=== PATIENT | female | born 1945 | race Caucasian/White ===

== ENCOUNTER 2016-05-27 01:44 | Inpatient (IN) ==
[2016-05-27] MEDS ORDERED: Ipratropium/Albuterol Neb 3 ML IH ONE (01:54)
[2016-05-27] MEDS ORDERED: Levofloxacin 750 MG/150 ML 750 MG/150 ML BAG IVPB ONE (01:54)
--- NOTE | 2016-05-27 01:56 | Emergency Department Note ---
Disposition Clinical Impression: Acute exacerbation of chronic obstructive airways disease, Community acquired pneumonia, Hypoxia, Failure of outpatient treatment Disposition: Admitted As Inpatient Condition: Good Referrals: Brennan Vance MD [Primary Care Provider] - Forms: ED Satisfaction Letter SOB HPI - General Chief Complaint: ED Shortness of Breath/Dyspnea Stated Complaint: GLENDA Time Seen by Provider: 05/27/16 01:49 Source: patient, EMS Mode of arrival: EMS Limitations: no limitations Nursing Notes Reviewed: Yes Vital Signs Reviewed: Yes - History of Present Illness Patient states that she thought she is having a typical exacerbation of her COPD. She saw Dr. Nazario Scott 2 days ago was started on azithromycin and prednisone. She is continued to have increased shortness of breath to where she felt too weak to get up and get around this early a.m. prompting a squad to be called. She states her oxygen has been increased from 2 L to 3 L. She has been saturating in the mid 80s and this came up to the 90s with an aerosol from EMS. She continues with a harsh cough, dyspnea and tachycardia. She has been bringing up some green phlegm. She states she has been around others who have had upper respiratory infection. She denies chest pain or palpitations. She has not been any diaphoresis, nausea, abdominal pain or diarrhea. She denies any lower extremity swelling or complaints. She has any other change in her medicines. She states she does have aerosols available to her at home and she has been taking about 1 a day. Pt Subjective Complaint: shortness of breath, cough Onset (ago): day(s) Context: recent illness Severity: moderate, severe Consistency/Duration: gradually worsening Improves with: oxygen, bronchodilators Worsens with: exertion, movement, coughing Known history of: COPD Associated symptoms: Reports: cough, wheezing, sputum production. Denies: chest pain, pain with inspiration, fever, orthopnea, lower extremity pain, polyuria, polydipsia, parasthesias, palpitations, hemoptysis, diaphoresis, nausea/vomiting, syncope, abdominal pain, rash Treatment prior to arrival: oxygen, bronchodilator Cough present: Yes Cough Description: Voluntary, Productive, Hacking, Wheezy Cough Frequency: Intermittent Sputum production: Yes Sputum Amount: Moderate Sputum Color: Green - Related Data Home oxygen amount: 3 liters Home Medications Medication Instructions Recorded Confirmed Albuterol Sulfate [Proair Hfa] 2 puff IH Q6-8H PRN 05/27/16 05/27/16 Fluticasone/Salmeterol [Advair 1 each IH BID 05/27/16 05/27/16 250-50 Diskus] Folic Acid 0.4 mg PO QDPC 05/27/16 05/27/16 Furosemide [Lasix] 40 mg PO DAILY 05/27/16 05/27/16 Losartan [Cozaar] 50 mg PO QDPC 05/27/16 05/27/16 Metoprolol [Lopressor] 25 mg PO QDPC 05/27/16 05/27/16 Montelukast [Singulair] 10 mg PO DAILY 05/27/16 05/27/16 Potassium Chloride [Klor-Con 10] 20 meq PO QDPC 05/27/16 05/27/16 Allergies Allergy/AdvReac Type Severity Reaction Status Date / Time No Known Allergies Allergy Verified 05/27/16 01:56 All systems ED: reviewed and negative except as stated. Past Medical History - Past Medical History Attestation: Yes The following information was validated with the patient. Source: patient, old records reviewed, nursing notes reviewed Medical history: Reports: COPD, GERD, hypertension Surgical history: Reports: cholecystectomy, other (Bladder surgery) Psychiatric history: Reports: no psych history - Social History Smoking Status: Never smoker Alcohol use: Reports: none Drug use: Reports: none Physical Exam - General Limitations: no limitations General appearance: alert, in no apparent distress - Head Head exam: atraumatic, normocephalic, normal inspection - Eye Eye exam: Present: normal appearance, PERRL, EOMI - ENT ENT exam: normal exam, normal oropharynx, mucous membranes moist - Neck Neck exam: Present: normal inspection, full ROM, trachea midline - Chest Chest inspection: Present: normal inspection, symmetric chest wall rise - Respiratory Respiratory exam: Present: respiratory distress, wheezes, accessory muscle use, prolonged expiratory phase. Absent: stridor - Cardiovascular Cardiovascular exam: Present: regular rate, normal rhythm, tachycardia, normal heart sounds - Abdominal Exam Abdominal exam: Present: soft, Non-Tender, normal bowel sounds. Absent: tenderness, distention, guarding, rebound, rigidity - Extremities Exam Extremities exam: Present: normal inspection, full ROM, normal capillary refill. Absent: tenderness, pedal edema, calf tenderness - Expanded Lower Extremity Exam Neurovascular/Tendon exam: Present: normal capillary refill. Absent: motor deficit, sensory deficit, tendon deficit Gait: not tested/not observed - Back Exam Back exam: Present: normal inspection, full ROM. Absent: tenderness - Neurological Exam Neurological exam: Present: alert, oriented X3 - Psychiatric Psychiatric exam: Present: normal affect, normal mood. Absent: anxious - Skin Skin exam: Present: warm, dry, intact, normal color. Absent: cyanosis, diaphoresis, pallor Course Course Narrative: With return of all EKG, lab and x-ray, care has been discussed with the patient and family. Her pneumonia with hypoxia and with failure of outpatient treatment warrants inpatient observation. For this purpose I discussed care with Dr. Ley and verbal orders are obtained for her observation. Vital Signs Temperature 97.8 F 05/27/16 01:45 Pulse Rate 122 05/27/16 01:45 Respiratory Rate 24 05/27/16 01:45 Blood Pressure 116/57 05/27/16 01:45 O2 Sat by Pulse Oximetry 85 05/27/16 01:45 Temperature 97.8 F 05/27/16 01:45 Pulse Rate 114 05/27/16 02:49 Respiratory Rate 26 05/27/16 02:49 Blood Pressure 111/98 05/27/16 02:49 O2 Sat by Pulse Oximetry 91 05/27/16 02:49 Oxygen Delivery Oxygen Delivery Nasal Cannula Shortness of Breath/Dyspnea - Differential Diagnosis Likely: acute exacerbation of chronic obstructive airways disease, congestive heart failure, pneumonia, asthma with exacerbation - Medical Records Medical records reviewed: Yes I reviewed the patient's medical records. - Lab Data Lab results reviewed: Yes I reviewed the patient's lab results. Result diagrams: 05/27/16 02:14 05/27/16 02:14 Lab Results 05/27/16 05/27/16 05/27/16 Range/Units 02:14 02:14 02:14 WBC 13.4 H (4.3-11.1) K/mcL RBC 5.73 H (3.82-4.97) M/mcL Hgb 14.7 (11.5-15.4) g/dL Hct 51.0 H (35.3-44.9) % MCV 89.0 (83.0-100.0) fL MCH 25.7 L (28.0-33.3) pg MCHC 28.8 L (31.6-35.5) g/dL RDW 14.3 (11.5-14.5) % Plt Count 243 (140-400) K/mcL MPV 10.9 (9.4-12.4) fL Immature Gran % 1.3 (0-4) % Seg Neutrophils % 88.1 % Lymphocytes % 4.6 % Monocytes % 5.7 % Eosinophils % 0.0 % Basophils % 0.3 % Neutrophils # 11.8 H (1.6-8.9) K/mcL Lymphocytes # 0.6 (0.6-4.6) K/mcL Monocytes # 0.8 (0.0-1.3) K/mcL Eosinophils # 0.0 (0.0-0.6) K/mcL Basophils # 0.0 (0.0-0.2) K/mcL Platelet Estimate Normal (Normal) VBG Lactic Acid (0.5-2.2) mmol/L Sodium 142 (136-145) mEq/L Potassium 4.6 H (3.5-4.5) mEq/L Chloride 92 L (98-109) mEq/L Carbon Dioxide 38 H (19-29) mEq/L BUN 19 (7-20) mg/dL Creatinine 0.86 (0.57-1.11) mg/dL Est GFR ( Amer) > 60 (> 60) Est GFR (Non-Af Amer) > 60 (> 60) BUN/Creatinine Ratio 22 (6-26) Glucose 141 H (70-99) mg/dL Calculated Osmolality 299 (280-300) Calcium 9.3 (8.6-10.8) mg/dL Troponin I 0.02 (0-0.03) ng/mL B-Natriuretic Peptide (0-100) pg/mL 05/27/16 05/27/16 Range/Units 02:14 02:14 WBC (4.3-11.1) K/mcL RBC (3.82-4.97) M/mcL Hgb (11.5-15.4) g/dL Hct (35.3-44.9) % MCV (83.0-100.0) fL MCH (28.0-33.3) pg MCHC (31.6-35.5) g/dL RDW (11.5-14.5) % Plt Count (140-400) K/mcL MPV (9.4-12.4) fL Immature Gran % (0-4) % Seg Neutrophils % % Lymphocytes % % Monocytes % % Eosinophils % % Basophils % % Neutrophils # (1.6-8.9) K/mcL Lymphocytes # (0.6-4.6) K/mcL Monocytes # (0.0-1.3) K/mcL Eosinophils # (0.0-0.6) K/mcL Basophils # (0.0-0.2) K/mcL Platelet Estimate (Normal) VBG Lactic Acid 1.5 (0.5-2.2) mmol/L Sodium (136-145) mEq/L Potassium (3.5-4.5) mEq/L Chloride (98-109) mEq/L Carbon Dioxide (19-29) mEq/L BUN (7-20) mg/dL Creatinine (0.57-1.11) mg/dL Est GFR ( Amer) (> 60) Est GFR (Non-Af Amer) (> 60) BUN/Creatinine Ratio (6-26) Glucose (70-99) mg/dL Calculated Osmolality (280-300) Calcium (8.6-10.8) mg/dL Troponin I (0-0.03) ng/mL B-Natriuretic Peptide 110 H (0-100) pg/mL - Radiology Data Radiology results reviewed: Yes I reviewed the patient's radiology results. Single view chest x-rays performed. This shows some mild hyperexpansion consistent with COPD. She has a patchy infiltrate in the right lower lobe. There is no evidence for heart failure, pneumothorax or effusion. Cardiac supple and is not significantly enlarged. This is on my interpretation. Impressions Chest X-Ray 05/27/16 01:54 IMPRESSION: 1. Basilar predominant right airspace opacities suspicious for pneumonia. Asymmetric edema could appear similar. 2. Suspected right pleural effusion. 3. Pulmonary vascular congestion. D/ / Kali Pascual MD / Kali Pascual MD Interpreting Provider: Kali Pascual MD - EKG Data EKG attestation: Yes I reviewed and interpreted this EKG. EKG shows normal: Reports: sinus rhythm, axis, intervals, QRS complexes, ST-T waves Rate: Reports: tachycardia P waves: Reports: LAE Interpretation: Reports: no acute changes
[2016-05-27] MEDS ORDERED: 0.9 % Sodium Chloride 500 ML IVC ONE (02:19)
[2016-05-27] MEDS ORDERED: 0.9 % Sodium Chloride 1,000 ML IVC SCH (02:30)
[2016-05-27 02:35] LABS: Basophils % 0.3 %; Hemoglobin 14.7 g/dL (11.5-15.4); Immature Granulocytes % 1.3 % (0-4); Lymphocytes # 0.6 K/mcL (0.6-4.6); Lymphocytes % 4.6 %; Mean Corpuscular HGB Conc 28.8 g/dL (31.6-35.5); Mean Corpuscular Hemoglobin 25.7 pg (28.0-33.3); Mean Platelet Volume 10.9 fL (9.4-12.4); Monocytes # 0.8 K/mcL (0.0-1.3); Monocytes % 5.7 %; Neutrophils # 11.8 K/mcL (1.6-8.9); Platelet Count 243 K/mcL (140-400); Red Blood Count 5.73 M/mcL (3.82-4.97); Red Cell Distribution Width 14.3 % (11.5-14.5); Segmented Neutrophils % 88.1 %
[2016-05-27 02:45] LABS: BUN/Creatinine Ratio 22 (6-26); Blood Urea Nitrogen 19 mg/dL (7-20); Calcium 9.3 mg/dL (8.6-10.8); Carbon Dioxide 38 mEq/L (19-29); Chloride 92 mEq/L (98-109); Glucose 141 mg/dL (70-99); Osmolality,Calculated 299 (280-300); Potassium 4.6 mEq/L (3.5-4.5); Sodium 142 mEq/L (136-145); eGFR For African Americans > 60 (> 60); eGFR For Non-African Americans > 60 (> 60)
[2016-05-27 02:49] LABS: Platelet Estimate Normal (Normal)
[2016-05-27] MEDS ORDERED: MOM Conc 10 ML UD.LIQ PO PRN (04:06)
[2016-05-27] MEDS ORDERED: Albuterol 2.5 MG/3 ML NEBULIZER IH PRN (04:06)
[2016-05-27] MEDS ORDERED: Acetaminophen 325 MG TABLET PO PRN (04:06)
[2016-05-27] MEDS ORDERED: Naloxone 0.4 MG/ML INJ IVP PRN (04:06)
[2016-05-27] MEDS ORDERED: Ondansetron 4 MG/2 ML VIAL IVP PRN (04:06)
[2016-05-27] MEDS: Ipratropium/Albuterol Neb 3 ML IH SCH ×2 (05:50→11:54)
[2016-05-27] MEDS ORDERED: MethylPREDNISolone 40 MG/ML VIAL IVP SCH (08:00)
[2016-05-27] MEDS ORDERED: Folic Acid 1 MG TABLET PO SCH ×2 (09:00→09:30)
[2016-05-27] MEDS: Folic Acid 1 MG TABLET PO SCH (12:05)
[2016-05-27] MEDS: Furosemide 40 MG TABLET PO SCH (12:05)
[2016-05-27] MEDS: 0.9 % Sodium Chloride 1,000 ML IVC SCH ×2 (12:09→17:42)
--- NOTE | 2016-05-27 14:22 | Internal Med History&Physical ---
Date of Encounter: 05/27/16 Time of Encounter: 13:50 Assessment and Plan (1) Community acquired pneumonia Current visit: Yes Status: Acute She has been given Levaquin and Solu-Medrol. Lactobacillus will also be given. Further workup will be done as needed. (2) Hypertension Current visit: Yes Status: Chronic Continue Cozaar and Lopressor Qualifiers: Hypertension type: essential hypertension Qualified Code(s): I10 - Essential (primary) hypertension Internal Medicine - H&P: HPI Chief complaint: Dyspnea Admitted From: Home Plans for Post Hospital Care: Home History of present illness: Ms. Nayak is a 70 year old female who came to emergency room stating she had received a Z-Kye and steroids at her PCP office on May 24 for dyspnea and respiratory infection. She did not improve clinically but continued to have dyspnea and cough with greenish sputum. She came to emergency and was felt to have right lower lobe pneumonia with exacerbation of COPD and was admitted to [facility] floor for ongoing care needs. Her respiratory history is significant for being a lifelong nonsmoker. She states she had PFTs approximately 2008 and was told she had COPD. She wears oxygen at home 10/09. Past Med Surg Social Fam HX - Past Medical History Medical history: CHF, COPD, GERD, hypertension Psychiatric history: no psych history - Past Surgical History Surgical History: cholecystectomy, other - Social History Smoking Status: Never smoker Smokeless Tobacco Status: No Alcohol use: none Drug use: none - Family History Mother Age: 93 Hx Family Neurologic Disorders: Yes (stroke) Father Age at : 61 Cause of : Cancer Hx Family Cancer: Yes Brother Age: 51 Age at : 51 Cause of : VT Hx Family Cardiac Disorders: Yes (VT) Internal Medicine - H&P: Meds Albuterol Sulfate [Proair Hfa] 2 puff IH Q6-8H PRN 05/27/16 [History] Fluticasone/Salmeterol [Advair 250-50 Diskus] 1 each IH BID 05/27/16 [History] Folic Acid 0.4 mg PO QDPC 05/27/16 [History] Furosemide [Lasix] 40 mg PO DAILY 05/27/16 [History] Losartan [Cozaar] 50 mg PO QDPC 05/27/16 [History] Metoprolol [Lopressor] 25 mg PO QDPC 05/27/16 [History] Montelukast [Singulair] 10 mg PO DAILY 05/27/16 [History] Potassium Chloride [Klor-Con 10] 20 meq PO QDPC 05/27/16 [History] Allergies No Known Allergies Allergy (Verified 05/27/16 01:56) All Systems PM: A 10-system review of systems was performed and is negative for pertinent findings except as documented above in the HPI. Review of systems: Gen.: She states her weight has been stable the past few months Cardiovascular: She has history of hypertension and thinks she has a diagnosis of heart failure. She states she had an echocardiogram at [facility] in 2014. She reports having a heart catheter approximately 2013 but did not require further intervention. She denies angina DVT or pulmonary embolus or VT. Respiratory: As per history of present illness GI: She has had cholecystectomy. She denies disorders of her liver or exocrine pancreas. : She denies hematuria dysuria or kidney stones Neurologic: She denies large distribution strokes or seizures. Endocrine: She denies diabetes thyroid disease or hyperlipidemia. Hematology/oncology: She denies blood disorders cancers or anemia Psychiatric: She denies anxiety depression or other mental health issues Musk skeletal: She has DJD but denies gout or other bone joint or muscle disorders. - Constitutional Vitals: Temp Pulse Resp BP Pulse Ox 98.0 F 96 18 104/60 95 05/27/16 11:00 05/27/16 11:00 05/27/16 11:00 05/27/16 11:00 05/27/16 11:00 Exam: Gen.: She is a well-developed well-nourished female who appears in no severe distress at present time. HEENT: Head is atraumatic and normocephalic. Eyes: EOMI. There is no scleral icterus. Mouth: Mucosa is moist. Neck: Supple and nontender. There is no thyromegaly or adenopathy noted. Heart: Regular without murmurs gallops or ectopics. Lungs: She has egophony with diminished breath sounds in the right base posteriorly. Lung kitchen are clear otherwise without wheezes or crackles. Abdomen: Soft and nontender. No masses or guarding are noted. Extremities: There is no cyanosis edema or clubbing noted. Dorsalis pedis and posttibial pulses are 1 to over 2 bilaterally. Neurologic: Mental status: She is talkative and a good historian. Cranial nerves: Smile is symmetric. Forehead wrinkles bilaterally. Tongue protrudes midline. EOMI. Motor: There is no pronator drift. Cerebellar: Finger to nose is intact bilaterally. Skin: Warm and dry Internal Med - H&P Results - Labs CBC & Chem 7: 05/27/16 02:14 05/27/16 02:14
[2016-05-28 01:46] LABS: ABG Base Excess 10.4 mEq/L (-2.0 to 3.0); ABG HCO3 46.2 mEQ/L (21-27); ABG Oxygen Saturation 81 % (95-98); ABG PCO2 120 mmHg (35-45); ABG PH 7.19 pH Units (7.32-7.45); ABG PO2 60 mmHg (85-104); ABG TCO2 49.8 mEq/L (20-26); Blood Gas Liter Flow 5 L/MIN
[2016-05-28] MEDS: Levofloxacin 750 MG/150 ML 750 MG/150 ML BAG IVPB SCH (03:04)
[2016-05-28 03:06] LABS: Blood Gas BiPAP(E) 8 cm H2O; Blood Gas BiPAP(I) 16 cm H2O; Blood Gas Liter Flow 6 L/MIN
[2016-05-28 03:07] LABS: ABG PH 7.23 pH Units (7.32-7.45)
[2016-05-28 03:08] LABS: ABG PCO2 109 mmHg (35-45)
[2016-05-28 03:09] LABS: ABG Base Excess 11.4 mEq/L (-2.0 to 3.0); ABG HCO3 45.6 mEQ/L (21-27); ABG Oxygen Saturation 77 % (95-98); ABG PO2 54 mmHg (85-104); ABG TCO2 48.9 mEq/L (20-26)
--- NOTE | 2016-05-28 03:13 | Internal Med Progress Note ---
Date of Encounter: 05/28/16 Time of Encounter: 02:00 - Time Spent With Patient Greater than 35 minutes - Subjective Interval history: Rapid response called on the patient secondary to respiratory distress ABG was obtained which showed a pH of 7.1 PaCO2 of 120 PaO2 of 60 though on upon arrival is alert able to name person place date time she is slow to answer but is appropriate she appears to be in mild distress with BiPAP machine in place with sats at 83% she appears to be slightly agitated and irritated and is pink warm dry lungs diminished breath sounds heart tachycardic and regular without click or gallop abdomen is soft supple positive bowel sounds extremities follows commands O2 sats 83% on BiPAP heart rate 110 Rapid response was called and still results of an abnormal ABG with the patient though alert and answering questions appropriately patient was evaluated I spoke with Dr. Ley she has been on BiPAP for just a short period of time which Dr. Ley and I had her at 01/23 from the numbers were provided he agreed close monitoring the patient for the next hour with a repeat ABG was obtained with the patient being reassessed 1 hour later resting comfortably sleeping arouses easily tolerating BiPAP sats still 8587% on BiPAP 01/23 settings she is arousable she still continues to person place and time still appears to be mildly tachypneic on examination still declining to want intubation at this moment repeat ABG shows a pH of 7.2 PaO2 of 60 with a PaCO2 of 108 showing improvement overall in the ABG showing that she is responding to the BiPAP and a slow progression continue to monitor for reevaluation of the rapid response at this time the patient appears to be tolerating and doing well continue slow improvement with ABGs and BiPAP consider transfer in the a.m. if continues to have further or any other decline in her overall condition patient was admitted for an underlying pneumonia - Constitutional Vitals: Temp Pulse Resp BP Pulse Ox 97.8 F 111 24 135/64 83 05/28/16 02:06 05/28/16 02:06 05/28/16 02:06 05/28/16 02:06 05/28/16 02:06 Internal Medicine: Result - Labs CBC & Chem 7: 05/27/16 02:14 05/27/16 02:14 - ABG Interpretation ABG results: ABG ABG pH 7.19 pH Units (7.32-7.45) L* 05/28/16 01:35 ABG pCO2 120 mmHg (35-45) H* 05/28/16 01:35 ABG pO2 60 mmHg (85-104) L 05/28/16 01:35 ABG O2 Saturation 81 % (95-98) L 05/28/16 01:35 Consult Discharge Plan - Plan Referrals: Brennan Vance MD [Primary Care Provider] - 1 week
[2016-05-28 06:23] LABS: Basophils % 0.1 %; Hematocrit 48.4 % (35.3-44.9); Hemoglobin 13.9 g/dL (11.5-15.4); Immature Granulocytes % 0.5 % (0-4); Lymphocytes % 8.6 %; Mean Corpuscular HGB Conc 28.7 g/dL (31.6-35.5); Mean Corpuscular Hemoglobin 25.9 pg (28.0-33.3); Mean Corpuscular Volume 90.1 fL (83.0-100.0); Mean Platelet Volume 10.7 fL (9.4-12.4); Monocytes # 1.2 K/mcL (0.0-1.3); Monocytes % 10.1 %; Platelet Count 259 K/mcL (140-400); Red Blood Count 5.37 M/mcL (3.82-4.97); Red Cell Distribution Width 14.1 % (11.5-14.5); Segmented Neutrophils % 80.7 %
[2016-05-28 06:40] LABS: Neutrophils # 9.3 K/mcL (1.6-8.9)
[2016-05-28 06:42] LABS: BUN/Creatinine Ratio 34 (6-26); Blood Urea Nitrogen 25 mg/dL (7-20); Calcium 9.4 mg/dL (8.6-10.8); Chloride 93 mEq/L (98-109); Glucose 96 mg/dL (70-99); Osmolality,Calculated 302 (280-300); Potassium 4.7 mEq/L (3.5-4.5); Sodium 144 mEq/L (136-145); eGFR For African Americans > 60 (> 60); eGFR For Non-African Americans > 60 (> 60)
[2016-05-28 06:48] LABS: Carbon Dioxide 41 mEq/L (19-29)
[2016-05-28 08:36] LABS: Anisocytosis 1+ (Not Present); Hypochromasia Present (Not Present); Platelet Clumps Few (Not Present); Platelet Estimate Normal (Normal)
[2016-05-28] MEDS: Folic Acid 1 MG TABLET PO SCH (09:03)
[2016-05-28] MEDS: Furosemide 40 MG TABLET PO SCH (09:03)
--- NOTE | 2016-05-28 09:29 | Electrocardiograph Report ---
[address] [address] Test Date: 2016-05-27 Pat Name: Steffi Nayak Department: [id number] Room: [facility] Gender: F [employer]: : [id number] Requested By: Jourdan Ragsdale Order Number: [id number] Reading MD: Layton Hansen MD Measurements Intervals [place] Rate: 117 P: 65 OK: 144 QRS: 47 QRSD: 90 T: 53 QT: 307 QTc: 377 Interpretive Statements SINUS TACHYCARDIA LEFT ATRIAL ENLARGEMENT BASELINE ARTIFACT Electronically Signed On 05-28-2016 9:28:00 EDT by Layton Hansen MD
--- NOTE | 2016-05-28 09:31 | Internal Med Progress Note ---
Date of Encounter: 05/28/16 Time of Encounter: 09:15 - Assessment and plan (1) Community acquired pneumonia Current Visit: Yes Status: Acute Assessment and plan: May 28. Leukocytosis and left shift on WBC differential have improved. Continue Levaquin. Will recheck ABG today. Repeat lab work and chest x-ray tomorrow. (2) Hypertension Current Visit: Yes Status: Chronic Assessment and plan: May 28. Continue Cozaar and Lopressor. Qualifiers: Hypertension type: essential hypertension Qualified Code(s): I10 - Essential (primary) hypertension - Subjective Interval history: May 28. She had worsening dyspnea last night. ABG showed hypoxemia and hypercapnia. She was placed on BiPAP and remains on it at this time. Follow- up ABG showed some improvement. Notes by Dr. Smith and nursing staff are reviewed. She has no new complaints this morning. - Constitutional Vitals: Temp Pulse Resp BP Pulse Ox 97.8 F 102 18 103/62 88 05/28/16 06:49 05/28/16 06:49 05/28/16 06:49 05/28/16 06:49 05/28/16 06:49 Exam: She is resting comfortably in the bed. She is wearing BiPAP at present. Lungs show unchanged egophony in the right base and equivocal egophony in the left base posteriorly. There is no wheezing and no inspiratory crackles. I reviewed her medications and lab results. Internal Medicine: Result - Labs CBC & Chem 7: 05/28/16 05:23 05/28/16 05:23 Labs: Short CBC 05/28/16 Range/Units 05:23 WBC 11.5 H (4.3-11.1) K/mcL Hgb 13.9 (11.5-15.4) g/dL Hct 48.4 H (35.3-44.9) % Plt Count 259 (140-400) K/mcL Neutrophils # 9.3 H (1.6-8.9) K/mcL BMP 05/28/16 05:23 Sodium 144 Potassium 4.7 H Chloride 93 L Carbon Dioxide 41 H* BUN 25 H Creatinine 0.73 Glucose 96 Calcium 9.4 - ABG Interpretation ABG results: ABG ABG pH 7.23 pH Units (7.32-7.45) L 05/28/16 02:58 ABG pCO2 109 mmHg (35-45) H* 05/28/16 02:58 ABG pO2 54 mmHg (85-104) L 05/28/16 02:58 ABG O2 Saturation 77 % (95-98) L 05/28/16 02:58 Consult Discharge Plan - Plan Referrals: Brennan Vance MD [Primary Care Provider] - 1 week
[2016-05-28 14:41] LABS: ABG PH 7.33 pH Units (7.32-7.45)
[2016-05-28 14:44] LABS: ABG Base Excess 17.7 mEq/L (-2.0 to 3.0); ABG HCO3 43.6 mEQ/L (21-27); ABG Oxygen Saturation 83 % (95-98); ABG PCO2 83 mmHg (35-45); ABG PO2 55 mmHg (85-104); ABG TCO2 46.2 mEq/L (20-26); Blood Gas Liter Flow 6 L/MIN
[2016-05-28 14:45] LABS: Blood Gas BiPAP(E) 8 cm H2O; Blood Gas BiPAP(I) 16 cm H2O; Blood Gas FiO2 44 %; Blood Gas Respiration Rate 18
[2016-05-28] MEDS: *HR* Enoxaparin 40 MG/0.4 ML SYRINGE SQ SCH (16:03)
[2016-05-28 22:54] LABS: ABG PH 7.24 pH Units (7.32-7.45)
[2016-05-28 22:55] LABS: ABG Base Excess 20.9 mEq/L (-2.0 to 3.0); ABG HCO3 48.2 mEQ/L (21-27); ABG Oxygen Saturation 81 % (95-98); ABG PCO2 112 mmHg (35-45); ABG PO2 57 mmHg (85-104); ABG TCO2 51.6 mEq/L (20-26); Blood Gas Liter Flow 7 L/MIN
[2016-05-28 22:56] LABS: Blood Gas BiPAP(E) 8 cm H2O; Blood Gas BiPAP(I) 16 cm H2O
[2016-05-29] MEDS: Levofloxacin 750 MG/150 ML 750 MG/150 ML BAG IVPB SCH (02:36)
[2016-05-29] MEDS: *HR* Enoxaparin 40 MG/0.4 ML SYRINGE SQ SCH (06:25)
[2016-05-29 06:49] LABS: Basophils % 0.2 %; Eosinophils % 0.4 %; Hematocrit 44.6 % (35.3-44.9); Hemoglobin 12.9 g/dL (11.5-15.4); Immature Granulocytes % 0.3 % (0-4); Lymphocytes # 0.8 K/mcL (0.6-4.6); Lymphocytes % 8.7 %; Mean Corpuscular HGB Conc 28.9 g/dL (31.6-35.5); Mean Corpuscular Hemoglobin 25.6 pg (28.0-33.3); Mean Corpuscular Volume 88.7 fL (83.0-100.0); Mean Platelet Volume 10.2 fL (9.4-12.4); Monocytes # 0.9 K/mcL (0.0-1.3); Monocytes % 9.3 %; Neutrophils # 7.4 K/mcL (1.6-8.9); Platelet Count 206 K/mcL (140-400); Red Blood Count 5.03 M/mcL (3.82-4.97); Red Cell Distribution Width 13.9 % (11.5-14.5); Segmented Neutrophils % 81.1 %
[2016-05-29 07:01] LABS: BUN/Creatinine Ratio 37 (6-26); Blood Urea Nitrogen 23 mg/dL (7-20); Calcium 8.9 mg/dL (8.6-10.8); Chloride 91 mEq/L (98-109); Glucose 84 mg/dL (70-99); Osmolality,Calculated 301 (280-300); Potassium 3.7 mEq/L (3.5-4.5); Sodium 144 mEq/L (136-145); eGFR For African Americans > 60 (> 60); eGFR For Non-African Americans > 60 (> 60)
[2016-05-29 07:04] LABS: Carbon Dioxide 43 mEq/L (19-29)
[2016-05-29] MEDS: Furosemide 40 MG TABLET PO SCH (08:16)
[2016-05-29] MEDS: Folic Acid 1 MG TABLET PO SCH (08:17)
[2016-05-29 09:12] LABS: Hypochromasia Present (Not Present)
[2016-05-29 09:13] LABS: Platelet Estimate Normal (Normal)
--- NOTE | 2016-05-29 09:36 | Internal Med Progress Note ---
Date of Encounter: 05/29/16 Time of Encounter: 09:25 - Assessment and plan (1) Community acquired pneumonia Current Visit: Yes Status: Acute Assessment and plan: May 28. Leukocytosis and left shift on WBC differential have improved. Continue Levaquin. Will recheck ABG today. Repeat lab work and chest x-ray tomorrow. May 29. Leukocytosis has resolved. Continue Levaquin and lactobacillus. We will order chest CT as recommended by the radiologist. (2) Hypertension Current Visit: Yes Status: Chronic Assessment and plan: May 28. Continue Cozaar and Lopressor. May 29. Blood pressure stable. Continue Cozaar and Lopressor. Qualifiers: Hypertension type: essential hypertension Qualified Code(s): I10 - Essential (primary) hypertension - Subjective Interval history: May 28. She had worsening dyspnea last night. ABG showed hypoxemia and hypercapnia. She was placed on BiPAP and remains on it at this time. Follow- up ABG showed some improvement. Notes by Dr. Smith and nursing staff are reviewed. She has no new complaints this morning. May 29. She had worsening dyspnea again at nighttime requiring modification of her BiPAP. She states she feels improved now. - Constitutional Vitals: Temp Pulse Resp BP Pulse Ox 98.0 F 89 26 128/84 90 05/29/16 06:19 05/29/16 06:19 05/29/16 06:19 05/29/16 06:19 05/29/16 06:19 Exam: She is sitting on the side of bed resting comfortably. She does not appear to be in significant dyspnea. She is wearing BiPAP. Lungs show egophony in the right lower lung field and equivocal egophony in the left lower lung field posteriorly. Reviewed her medications and lab results. Internal Medicine: Result - Labs CBC & Chem 7: 05/29/16 05:12 05/29/16 05:12 Labs: Short CBC 05/29/16 Range/Units 05:12 WBC 9.1 (4.3-11.1) K/mcL Hgb 12.9 (11.5-15.4) g/dL Hct 44.6 (35.3-44.9) % Plt Count 206 (140-400) K/mcL Neutrophils # 7.4 (1.6-8.9) K/mcL BMP 05/29/16 05:12 Sodium 144 Potassium 3.7 D Chloride 91 L Carbon Dioxide 43 H* BUN 23 H Creatinine 0.63 Glucose 84 Calcium 8.9 - ABG Interpretation ABG results: ABG ABG pH 7.24 pH Units (7.32-7.45) L 05/28/16 22:43 ABG pCO2 112 mmHg (35-45) H* 05/28/16 22:43 ABG pO2 57 mmHg (85-104) L 05/28/16 22:43 ABG O2 Saturation 81 % (95-98) L 05/28/16 22:43 - Impressions Impressions Chest X-Ray 05/29/16 06:30 IMPRESSION: Persisting airspace disease in the right lung base, suspected pneumonia. Pulmonary vessels are indistinct. Right hilum is prominent, possibly with enlargement of the descending pulmonary artery. The appearance was similar in 2014. Pulmonary arterial hypertension is considered. RECOMMENDATION: Follow-up CT chest is recommended. D/ / Jared Mckenzie MD / Jared Mckenzie MD Interpreting Provider: Jared Mckenzie MD Consult Discharge Plan - Plan Referrals: Brennan Vance MD [Primary Care Provider] - 1 week
[2016-05-30] MEDS: Levofloxacin 750 MG/150 ML 750 MG/150 ML BAG IVPB SCH (02:02)
[2016-05-30] MEDS: *HR* Enoxaparin 40 MG/0.4 ML SYRINGE SQ SCH (05:15)
[2016-05-30 05:46] LABS: Basophils % 0.1 %; Eosinophils # 0.1 K/mcL (0.0-0.6); Eosinophils % 1.2 %; Hematocrit 45.2 % (35.3-44.9); Hemoglobin 13.1 g/dL (11.5-15.4); Immature Granulocytes % 0.4 % (0-4); Lymphocytes # 0.9 K/mcL (0.6-4.6); Lymphocytes % 11.3 %; Mean Corpuscular Hemoglobin 25.4 pg (28.0-33.3); Mean Corpuscular Volume 87.6 fL (83.0-100.0); Mean Platelet Volume 10.5 fL (9.4-12.4); Monocytes # 0.9 K/mcL (0.0-1.3); Monocytes % 10.3 %; Neutrophils # 6.3 K/mcL (1.6-8.9); Platelet Count 195 K/mcL (140-400); Red Blood Count 5.16 M/mcL (3.82-4.97); Segmented Neutrophils % 76.7 %
[2016-05-30 06:05] LABS: Alanine Aminotransferase 7 Units/L (0-55); Albumin 2.7 g/dL (3.5-5.0); Albumin/Globulin Ratio 0.8 (1.1-2.2); Alkaline Phosphatase 60 Units/L (38-126); Aspartate Amino Transferase 9 Units/L (5-34); BUN/Creatinine Ratio 29 (6-26); Bilirubin,Total 0.8 mg/dL (0.2-1.2); Blood Urea Nitrogen 17 mg/dL (7-20); Calcium 9.3 mg/dL (8.6-10.8); Chloride 89 mEq/L (98-109); Globulin 3.4 g/dL (2.4-3.5); Glucose 84 mg/dL (70-99); Osmolality,Calculated 301 (280-300); Potassium 3.8 mEq/L (3.5-4.5); Sodium 145 mEq/L (136-145); Total Protein 6.1 g/dL (6.0-8.3); eGFR For African Americans > 60 (> 60); eGFR For Non-African Americans > 60 (> 60)
[2016-05-30 06:56] LABS: Carbon Dioxide 45 mEq/L (19-29)
[2016-05-30 08:22] LABS: ABG PH 7.37 pH Units (7.32-7.45)
[2016-05-30 08:24] LABS: ABG Base Excess 25.5 mEq/L (-2.0 to 3.0); ABG HCO3 50.9 mEQ/L (21-27); ABG Oxygen Saturation 93 % (95-98); ABG PCO2 89 mmHg (35-45); ABG PO2 76 mmHg (85-104); ABG TCO2 53.6 mEq/L (20-26)
[2016-05-30 08:25] LABS: Blood Gas BiPAP(E) 8 cm H2O; Blood Gas BiPAP(I) 16 cm H2O; Blood Gas FiO2 40 %; Blood Gas Respiration Rate 16
[2016-05-30] MEDS: Furosemide 40 MG TABLET PO SCH (08:26)
[2016-05-30] MEDS: Folic Acid 1 MG TABLET PO SCH (08:26)
--- NOTE | 2016-05-30 10:38 | Internal Med Progress Note ---
Date of Encounter: 05/30/16 Time of Encounter: 10:25 - Assessment and plan (1) Community acquired pneumonia Current Visit: Yes Status: Acute Assessment and plan: May 28. Leukocytosis and left shift on WBC differential have improved. Continue Levaquin. Will recheck ABG today. Repeat lab work and chest x-ray tomorrow. May 29. Leukocytosis has resolved. Continue Levaquin and lactobacillus. We will order chest CT as recommended by the radiologist. May 30. Chest CT showed bilateral opacities, right significantly worse than left consistent with pneumonia. Continue Levaquin and lactobacillus. We will lessen BiPAP use as tolerated. (2) Hypertension Current Visit: Yes Status: Chronic Assessment and plan: May 28. Continue Cozaar and Lopressor. May 29. Blood pressure stable. Continue Cozaar and Lopressor. Qualifiers: Hypertension type: essential hypertension Qualified Code(s): I10 - Essential (primary) hypertension - Subjective Interval history: May 28. She had worsening dyspnea last night. ABG showed hypoxemia and hypercapnia. She was placed on BiPAP and remains on it at this time. Follow- up ABG showed some improvement. Notes by Dr. Smith and nursing staff are reviewed. She has no new complaints this morning. May 29. She had worsening dyspnea again at nighttime requiring modification of her BiPAP. She states she feels improved now. May 30. She feels much better today and has no new complaints. - Constitutional Vitals: Temp Pulse Resp BP Pulse Ox 98.0 F 86 18 128/74 94 05/30/16 10:03 05/30/16 10:03 05/30/16 10:03 05/30/16 10:03 05/30/16 10:03 Exam: She is sitting in bed resting comfortably. Her affect is more bright and cheerful. She does not appear to have labored respirations. She is wearing BiPAP at present time. Extremities show no edema. I reviewed her medications and lab results. Internal Medicine: Result - Labs CBC & Chem 7: 05/30/16 04:05 05/30/16 04:05 Labs: Short CBC 05/30/16 Range/Units 04:05 WBC 8.2 (4.3-11.1) K/mcL Hgb 13.1 (11.5-15.4) g/dL Hct 45.2 H (35.3-44.9) % Plt Count 195 (140-400) K/mcL Neutrophils # 6.3 (1.6-8.9) K/mcL BMP 05/30/16 04:05 Sodium 145 Potassium 3.8 Chloride 89 L Carbon Dioxide 45 H* BUN 17 Creatinine 0.59 Glucose 84 Calcium 9.3 Liver Function 05/30/16 Range/Units 04:05 Total Bilirubin 0.8 (0.2-1.2) mg/dL AST 9 (5-34) Units/L ALT 7 (0-55) Units/L Alkaline Phosphatase 60 (38-126) Units/L Albumin 2.7 L (3.5-5.0) g/dL - ABG Interpretation ABG results: ABG ABG pH 7.37 pH Units (7.32-7.45) 05/30/16 08:15 ABG pCO2 89 mmHg (35-45) H* 05/30/16 08:15 ABG pO2 76 mmHg (85-104) L 05/30/16 08:15 ABG O2 Saturation 93 % (95-98) L 05/30/16 08:15 - Impressions Impressions Chest CT 05/29/16 09:38 IMPRESSION: 1. Scattered areas of ground-glass and nodular airspace opacities in both lungs, worse in the right upper, right middle and right lower lobes, which is suspicious for multifocal infection in the appropriate clinical setting including both typical or atypical (fungal) organisms. 2. Chronic atelectasis with associated bronchiectasis in the medial left lower lobe and scattered areas of cystic bronchiectasis in the left upper lobe, may represent sequela of prior or chronic infection. 3. Dilated pulmonary artery to 38 mm suggestive of pulmonary artery hypertension. 4. Small sliding-type hiatal hernia with focal thickening of the distal esophagus, nonspecific, could represent esophagitis. D/ / 05/29/2016 11:25:44 Navid Vasques MD / ananya Interpreting Provider: Navid Vasques MD - VTE Documentation of Mechanical Device: Graduated compression elastic hosiery Consult Discharge Plan - Plan Referrals: Brennan Vance MD [Primary Care Provider] - 1 week
[2016-05-31] MEDS: Levofloxacin 750 MG/150 ML 750 MG/150 ML BAG IVPB SCH (03:13)
[2016-05-31] MEDS: *HR* Enoxaparin 40 MG/0.4 ML SYRINGE SQ SCH (06:11)
--- NOTE | 2016-05-31 08:32 | Internal Med Progress Note ---
Date of Encounter: 05/31/16 Time of Encounter: 08:10 - Assessment and plan (1) Community acquired pneumonia Current Visit: Yes Status: Acute Assessment and plan: May 28. Leukocytosis and left shift on WBC differential have improved. Continue Levaquin. Will recheck ABG today. Repeat lab work and chest x-ray tomorrow. May 29. Leukocytosis has resolved. Continue Levaquin and lactobacillus. We will order chest CT as recommended by the radiologist. May 30. Chest CT showed bilateral opacities, right significantly worse than left consistent with pneumonia. Continue Levaquin and lactobacillus. We will lessen BiPAP use as tolerated. May 31. Clinically improved. Continue present treatment. Anticipate discharge home tomorrow. (2) Hypertension Current Visit: Yes Status: Chronic Assessment and plan: May 28. Continue Cozaar and Lopressor. May 29. Blood pressure stable. Continue Cozaar and Lopressor. Qualifiers: Hypertension type: essential hypertension Qualified Code(s): I10 - Essential (primary) hypertension - Subjective Interval history: May 28. She had worsening dyspnea last night. ABG showed hypoxemia and hypercapnia. She was placed on BiPAP and remains on it at this time. Follow- up ABG showed some improvement. Notes by Dr. Smith and nursing staff are reviewed. She has no new complaints this morning. May 29. She had worsening dyspnea again at nighttime requiring modification of her BiPAP. She states she feels improved now. May 30. She feels much better today and has no new complaints. May 31. She has no new complaints. She was on BiPAP for only a few hours last night per RT report. - Constitutional Vitals: Temp Pulse Resp BP Pulse Ox 97.6 F 95 20 145/66 96 05/31/16 06:25 05/31/16 06:25 05/31/16 06:25 05/31/16 06:25 05/31/16 06:25 Exam: She is sitting in bed resting comfortably. She is wearing oxygen per nasal cannula.. O2 sat is 97%. I reviewed her medications and lab results Internal Medicine: Result - Labs CBC & Chem 7: 05/30/16 04:05 05/30/16 04:05 - ABG Interpretation ABG results: ABG ABG pH 7.37 pH Units (7.32-7.45) 05/30/16 08:15 ABG pCO2 89 mmHg (35-45) H* 05/30/16 08:15 ABG pO2 76 mmHg (85-104) L 05/30/16 08:15 ABG O2 Saturation 93 % (95-98) L 05/30/16 08:15 - Impressions Impressions Chest CT 05/29/16 09:38 IMPRESSION: 1. Scattered areas of ground-glass and nodular airspace opacities in both lungs, worse in the right upper, right middle and right lower lobes, which is suspicious for multifocal infection in the appropriate clinical setting including both typical or atypical (fungal) organisms. 2. Chronic atelectasis with associated bronchiectasis in the medial left lower lobe and scattered areas of cystic bronchiectasis in the left upper lobe, may represent sequela of prior or chronic infection. 3. Dilated pulmonary artery to 38 mm suggestive of pulmonary artery hypertension. 4. Small sliding-type hiatal hernia with focal thickening of the distal esophagus, nonspecific, could represent esophagitis. D/ / 05/29/2016 11:25:44 Navid Vasques MD / ananya Interpreting Provider: Navid Vasques MD - VTE Documentation of Mechanical Device: Graduated compression elastic hosiery Consult Discharge Plan - Plan Referrals: Brennan Vance MD [Primary Care Provider] - 1 week
[2016-05-31] MEDS: Folic Acid 1 MG TABLET PO SCH (08:52)
[2016-05-31] MEDS: Furosemide 40 MG TABLET PO SCH (08:52)
[2016-06-01] MEDS: *HR* Enoxaparin 40 MG/0.4 ML SYRINGE SQ SCH (06:10)
[2016-06-01 07:09] VITALS: BP 131/70
--- NOTE | 2016-06-01 09:14 | Discharge Summary ---
Date of Encounter: 06/01/16 Time of Encounter: 09:00 - Discharge Diagnosis (1) Community acquired pneumonia Priority: Primary Status: Acute (2) Hypertension Priority: Secondary Status: Chronic Qualifiers: Hypertension type: essential hypertension Qualified Code(s): I10 - Essential (primary) hypertension - Discharge Medications Prescriptions: Lactobacillus [Culturelle] 1 each PO BID #4 cap.sprink Levofloxacin [Levaquin] 750 mg PO DAILY #2 tablet Home Medications: Albuterol Sulfate [Proair Hfa] 2 puff IH Q6-8H PRN 05/27/16 [History] Fluticasone/Salmeterol [Advair 250-50 Diskus] 1 each IH BID 05/27/16 [History] Folic Acid 0.4 mg PO QDPC 05/27/16 [History] Furosemide [Lasix] 40 mg PO DAILY 05/27/16 [History] Losartan [Cozaar] 50 mg PO QDPC 05/27/16 [History] Metoprolol [Lopressor] 25 mg PO QDPC 05/27/16 [History] Montelukast [Singulair] 10 mg PO DAILY 05/27/16 [History] Potassium Chloride [Klor-Con 10] 20 meq PO QDPC 05/27/16 [History] Lactobacillus [Culturelle] 1 each PO BID #4 cap.sprink 06/01/16 [Rx] Levofloxacin [Levaquin] 750 mg PO DAILY #2 tablet 06/01/16 [Rx] Allergies/Adverse Reactions: Allergies No Known Allergies Allergy (Verified 05/27/16 01:56) Procedures/tests Complete & Pending: Procedures Performed prior 72 hours Category Date Time Status CT chest wo con [CT] Routine Cat Scan 05/29/16 09:38 Completed Date of admission: 05/28/16 12:57 Primary care physician: Brennan Vance MD Consults: 05/29/16 11:31 Consult to Occupational Therapy [CONS] Routine Comment: Evaluate, develop and implement POC Consult to Physical Therapy [CONS] Routine Comment: Evaluate, develop and implement POC - Patient Status Disposition: Home, Self-Care Condition: Good Overall status at discharge: patient is progressing back to baseline - Discharge Instructions Follow Up With: Brennan Vance MD [Primary Care Provider] - 1 week - Diet and Activity Activity: resume usual activities as tolerated, wear oxygen at all times Diet: advance to your usual diet Hospital course: Ms. Nayak is a 70 year old female who came to emergency room stating she had received a Z-Kye and steroids at her PCP office on May 24 for dyspnea and respiratory infection. She did not improve clinically but continued to have dyspnea and cough with greenish sputum. She came to emergency and was felt to have right lower lobe pneumonia with exacerbation of COPD and was admitted to [facility] for ongoing care needs. Initial orders were written by the emergency room physician. I saw her on May 27 and performed a history and physical. She was started on IV Levaquin was initially given Solu-Medrol. Lactobacillus was given. Her WBC improved to 8.2 by the day prior to discharge with resolution of the left shift. She had respiratory insufficiency with CO2 retention and required BiPAP in the midportion of her hospital stay. Chest CT showed bilateral infiltrates significantly more in the right lung than the left. On May 30 her blood gas had return to normal pH but PCO2 remained elevated at 89. She will continue oxygen at home at 2-3 L/m by nasal cannula. She did not require BiPAP the last 24 hours of hospitalization. On June 01 she was stable for discharge home. She will follow with Dr. Vance within 1 week. He will continue with Levaquin and probiotic for 2 additional days at discharge. - Time Spent with Patient Total time spent providing and/or coordinating discharge services: - Constitutional Vitals: Temp Pulse Resp BP Pulse Ox 97.9 F 98 18 131/70 97 06/01/16 07:07 06/01/16 07:07 06/01/16 07:07 06/01/16 07:07 06/01/16 07:07 - VTE Documentation of Mechanical Device: Graduated compression elastic hosiery
== END 2016-06-01 10:44 | disposition home or self-care (01) | DRG 190 ==
LOC: INPPIK 01:44 → EMEROOPIK 01:44 → INPPIK 03:35
PROVIDERS: ADMIT Internal Medicine; ATTEND Internal Medicine